=== PATIENT | female | born 1960 | race Asian ===

== ENCOUNTER 2020-12-08 05:32 | Emergency (ER) | payer OTHER ==
[~2020-12-08] VITALS: Ht 170.2 cm; Wt 63.0 kg
[2020-12-08 05:32] VITALS: TEMP 98.2
[2020-12-08 06:20] LABS: PLATELET COUNT 193 K/uL (152-353)
[2020-12-08 06:27] LABS: POTASSIUM 4.4 mmol/L (3.6-5.2)
[2020-12-08 07:04] VITALS: BP 118/66
[2020-12-08] MEDS ORDERED: ALBUTEROL0.63 MG/3 INH (09:12)
[2020-12-08] MEDS ORDERED: [UNRECOGNIZED DRUG - OTHER] PEG (09:14)
[2020-12-08] MEDS ORDERED: BRIMONIDINE0.15 % OPTH (09:19)
[2020-12-08] MEDS ORDERED: CALCIUM 600600 MG PEG (09:21)
[2020-12-08] MEDS ORDERED: DIVA125C PEG ×2 (09:23→09:29)
[2020-12-08] MEDS ORDERED: DULOXETINE HCL20 MG PEG (09:30)
[2020-12-08] MEDS ORDERED: NEURONTIN 100M100 MG PEG (09:32)
[2020-12-08] MEDS ORDERED: HALO5INJ3 IM (09:33)
[2020-12-08] MEDS ORDERED: HYDROCO/APAP1 M1 PEG (09:35)
[2020-12-08] MEDS ORDERED: MECLIZINE25 M1 PEG (09:38)
[2020-12-08] MEDS ORDERED: GNP MELATONIN3 MG PEG (09:39)
[2020-12-08] MEDS ORDERED: MOBIC15 MG PEG (09:40)
[2020-12-08] MEDS ORDERED: METOPROLOL25 M1 PEG (09:42)
[2020-12-08] MEDS ORDERED: MILK OF MA400 MG/5 M PEG (09:43)
[2020-12-08] MEDS ORDERED: MONT10TA PEG (09:44)
[2020-12-08] MEDS ORDERED: MIRALAX17 GM PEG (09:44)
[2020-12-08] MEDS ORDERED: NUEDEXTA (09:59)
[2020-12-08] MEDS ORDERED: OMEPRAZOLE20 M3 PEG (10:02)
[2020-12-08] MEDS ORDERED: ONDA4TAB3 PEG (10:03)
[2020-12-08] MEDS ORDERED: PAROXETINE40 MG PEG (10:04)
[2020-12-08] MEDS ORDERED: PROVENTIL INH (10:06)
[2020-12-08] MEDS ORDERED: RISP1TAB PEG (10:07)
[2020-12-08] MEDS ORDERED: SCOP1.5D TD (10:09)
[2020-12-08] MEDS ORDERED: SEROQUEL25 MG PEG (10:10)
[2020-12-08] MEDS ORDERED: TRAMADOL HYDROC50 MG PEG (10:11)
[2020-12-08] MEDS ORDERED: [UNRECOGNIZED DRUG - OTHER] PEG (10:12)
[2020-12-08] MEDS ORDERED: TYLENOL PEG (10:12)
== END 2020-12-08 07:06 ==
LOC: ED 05:32
PROVIDERS: Emergency Medicine Emergency Medical Services
DX: R46.89 Other symptoms and signs involving appearance and behavior (principal); I10 Essential (primary) hypertension; Z11.52 Encounter for screening for COVID-19; Z04.6 Encounter for general psychiatric examination, requested by authority
CPT/HCPCS: 80053; 85027; 87635; 93005; 99283; 99285; U0003